=== PATIENT | female | born 1965 ===

== ENCOUNTER 2019-01-17 16:57 | Observation (INO) | payer MEDICAID, OTHER ==
[2019-01-17 16:59] VITALS: BMI 25.4
[2019-01-17] MEDS ORDERED: Sodium Chloride 0.9% 1,000 ML IV ONE ×2 (17:23→18:10)
--- NOTE | 2019-01-17 17:23 | C.PDOC ---
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 Patient denies having fever,chills, diarrhea or dysuria. <Annette Mar - Last Filed: 01/17/19 18:44> History Per: Patient History/Exam Limitations: no limitations Onset/Duration Of Symptoms: Hrs Current Symptoms Are (Timing): Still Present Severity: Moderate Location Of Pain/Discomfort: Diffuse Quality Of Discomfort: Cramping Associated Symptoms: Nausea, Vomiting. denies: Fever, Chills <Isabela,Annette A - Last Filed: 01/17/19 18:44> <Brittany Bolden - Last Filed: 01/17/19 21:00> Chief Complaint (Nursing): Abdominal Pain Past Medical History Reviewed: Historical Data, Nursing Documentation, Vital Signs Vital Signs: Last Vital Signs Temp 97.5 F L 01/17/19 17:08 Pulse 56 L 01/17/19 17:08 Resp 20 01/17/19 17:08 BP 141/94 H 01/17/19 17:08 Pulse Ox 100 01/17/19 17:08 - Medical History PMH: No Chronic Diseases Other Surgeries: Hx of surgeries Family History: States: No Known Family Hx - Social History Hx Alcohol Use: No Hx Substance Use: No <Annette Mar - Last Filed: 01/17/19 18:44> Vital Signs: Last Vital Signs Temp 97.7 F 01/17/19 20:25 Pulse 66 01/17/19 20:25 Resp 20 01/17/19 20:25 BP 125/75 01/17/19 20:25 Pulse Ox 100 01/17/19 20:25 <Brittany Bolden - Last Filed: 01/17/19 21:00> Review Of Systems Except As Marked, All Systems Reviewed And Found Negative. Constitutional: Negative for: Fever, Chills Gastrointestinal: Positive for: Nausea, Vomiting, Abdominal Pain. Negative for: Diarrhea Genitourinary: Negative for: Dysuria, Hematuria <IsabelaAnnette Akash - Last Filed: 01/17/19 18:44> Physical Exam - Physical Exam Appears: Non-toxic, No Acute Distress Skin: Normal Color, Warm, Dry Head: Atraumatic, Normacephalic Eye(s): bilateral: Normal Inspection Nose: Normal Oral Mucosa: Moist Neck: Supple Chest: Symmetrical Cardiovascular: Rhythm Regular Respiratory: Normal Breath Sounds, No Rales, No Rhonchi, No Wheezing Gastrointestinal/Abdominal: Soft, Tenderness (diffuse tenderness), No Guarding, No Rebound Back: No CVA Tenderness Neurological/Psych: Oriented x3, Normal Speech <Annette Mar - Last Filed: 01/17/19 18:44> ED Course And Treatment - Laboratory Results Result Diagrams: 01/17/19 17:37 01/17/19 17:37 Lab Interpretation: Abnormal Urine POC: Negative O2 Sat by Pulse Oximetry: 100 (RA) Pulse Ox Interpretation: Normal Progress Note: Treated with IVF NSS x 2 L and zofran IV <Annette Mar - Last Filed: 01/17/19 18:44> - Laboratory Results Result Diagrams: 01/17/19 17:37 01/17/19 17:37 Lab Results: Total Bilirubin 0.3 mg/dL (0.2-1.3) 01/17/19 17:37 AST 22 U/L (14-36) 01/17/19 17:37 ALT 22 U/L (9-52) 01/17/19 17:37 Alkaline Phosphatase 85 U/L (38-126) 01/17/19 17:37 Total Protein 7.6 g/dL (6.3-8.3) 01/17/19 17:37 Albumin 4.7 g/dL (3.5-5.0) 01/17/19 17:37 Globulin 2.9 gm/dL (2.2-3.9) 01/17/19 17:37 Albumin/Globulin Ratio 1.6 (1.0-2.1) 01/17/19 17:37 Lipase 40 U/L (23-300) 01/17/19 17:37 Urine Color Yellow (YELLOW) 01/17/19 17:45 Urine Clarity Hazy (Clear) 01/17/19 17:45 Urine pH 7.0 (5.0-8.0) 01/17/19 17:45 Ur Specific [place] 1.021 (1.003-1.030) 01/17/19 17:45 Urine Protein Negative mg/dL (NEGATIVE) 01/17/19 17:45 Urine Glucose (UA) 1+ mg/dL (Normal) 01/17/19 17:45 Urine Ketones 1+ mg/dL (NEGATIVE) H 01/17/19 17:45 Urine Blood 1+ (NEGATIVE) H 01/17/19 17:45 Urine Nitrate Negative (NEGATIVE) 01/17/19 17:45 Urine Bilirubin Negative (NEGATIVE) 01/17/19 17:45 Urine Urobilinogen Normal mg/dL (0.2-1.0) 01/17/19 17:45 Ur Leukocyte Esterase Neg Joe/uL (Negative) 01/17/19 17:45 Urine WBC (Auto) 2 /hpf (0-5) 01/17/19 17:45 Urine RBC (Auto) 8 /hpf (0-3) H 01/17/19 17:45 Ur Squamous Epith Cells 1 /hpf (0-5) 01/17/19 17:45 Amorphous Sediment Rare /ul (<OCC) H 01/17/19 17:45 Urine HCG, Qual Negative (NEGATIVE) 01/17/19 17:45 Urine HCG, Qual Negative (NEGATIVE) 01/17/19 17:45 - CT Scan/US US ABD/PEL Other Rad Studies (CT/US): Read By Radiologist, Radiology Report Reviewed CT/US Interpretation: Name: MARIZOL ZENG Exam Date: Jan 17, 2019 6:56:36 PM EDT. Modality Type: CT\SR. Description: CT - ABDOMEN AND PELVIS. Gender: F Laterality: Not applicable. 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 . EXAM: CT Abdomen and Pelvis without IV contrast. CLINICAL HISTORY: Stomach pain. TECHNIQUE: Axial computed tomography images of the abdomen and pelvis without intravenous contrast. CONTRAST: Without. COMPARISON: None provided. FINDINGS: LUNG BASES: The lung bases appear clear. No pleural effusions are seen. LIVER: Unremarkable. GALLBLADDER AND BILE DUCTS: The gallbladder appears within normal limits. No radioopaque gallstones are seen. No biliary ductal dilatation is evident. PANCREAS: Unremarkable. SPLEEN: Unremarkable. ADRENAL GLANDS: Unremarkable. KIDNEYS, URETERS, AND BLADDER: The kidneys appear within normal limits. There is no hydronephrosis or hydroureter. No urinary calculi are seen. The urinary bladder appeared normal in size and configuration. STOMACH AND BOWEL: A small hiatal hernia is noted. No evidence of bowel obstruction. No evidence suggesting enteritis or colitis. APPENDIX: The appendix is distended with fluid measuring up to 1.2 cm transversely. Subtle periappendiceal haziness is noted. These findings are compatible with acute appendicitis. PERITONEUM: No free fluid. No free air. LYMPH NODES: No lymphadenopathy is evident. REPRODUCTIVE: Bulky fibroid uterus is seen. Ovaries are grossly normal. VASCULATURE: No evidence of abdominal aortic aneurysm. BONES: No aggressive appearing osseous lesion. No acute osseous pathology evident. IMPRESSION: 1. Findings compatible with acute appendicitis. 2. Small hiatal hernia. 3. Fibroid uterus. . Electronically signed on Jan 17, 2019 8:43:00 PM EDT by: Thong Rodriguez M.D., MELVA Certified By ABR & CBCCT. Fellowship Trained MRI and CT Specialist <Brittany Bolden - Last Filed: 01/17/19 21:00> Medical Decision Making Medical Decision Making: Plan: --Labs --UA --CT-Abd & Pelv. --IV Fluids --Zofran IV --Toradol IV <Annette Mar - Last Filed: 01/17/19 18:44> Disposition - Disposition Disposition Time: 19:00 - POA Present On Arrival: None <Annette Mar - Last Filed: 01/17/19 18:44> - Disposition Disposition Time: 20:59 - POA Present On Arrival: None <Brittany Bolden - Last Filed: 01/17/19 21:00> - Disposition Disposition: HOSPITALIZED Condition: STABLE - Clinical Impression Clinical Impression: Acute appendicitis - PA / SHAPE HAND / Resident Statement MD/DO has reviewed & agrees with the documentation as recorded. - Scribe Statement The provider has reviewed the documentation as recorded by the Gelacioibe Thomas Gene Provider Attestation All medical record entries made by the Scribe were at my direction and personally dictated by me. I have reviewed the chart and agree that the record accurately reflects my personal performance of the history, physical exam, medical decision making, and the department course for this patient. I have also personally directed, reviewed, and agree with the discharge instructions and disposition. <Annette Mar - Last Filed: 01/17/19 18:44> Physician Patient Turnover Patient Signed Over To: Brittany Bolden Handoff Comments: pending CT <Annette aMr - Last Filed: 01/17/19 18:44> Addendum Addendum: 01/17/19 20:58 Patient endorsed by Isabela pending CT results. CT findings consistent with acute appendicitis. Case discussed with Dr Willoughby who agrees to admit. <Brittany Bolden - Last Filed: 01/17/19 21:00>
[2019-01-17] MEDS ORDERED: Sodium Chloride 0.9% 1,000 ML ONE ×2 (17:33→18:46)
[2019-01-17 17:40] LABS: BASO % 0.1 % (0.0-2.0); EOS % 0.1 % (0.0-4.0); HEMOGLOBIN 10.5 g/dL (11.0-16.0); LYMPH # 0.6 K/uL (1.0-4.3); LYMPH % 2.9 % (20.0-40.0); MEAN CELL VOLUME 72.2 fL (81.0-99.0); MEAN CORPUSCULAR HEMOGLOBIN 22.5 pg (27.0-31.0); MEAN CORPUSCULAR HGB CONC 31.1 g/dL (33.0-37.0); MEAN PLATELET VOLUME 7.7 fL (7.2-11.7); MONO # 0.4 K/uL (0.0-0.8); MONO % 2.2 % (0.0-10.0); NEUT # 19.3 K/uL (1.8-7.0); NEUT % 94.7 % (50.0-75.0); PLATELET COUNT 361 K/uL (130-400); RBC 4.66 Mil/uL (3.80-5.20); RED CELL DISTRIBUTION WIDTH 19.1 % (11.5-14.5); WHITE BLOOD COUNT 20.4 K/uL (4.8-10.8)
[2019-01-17 17:55] LABS: ALB/GLOB RATIO 1.6 (1.0-2.1); ALBUMIN 4.7 g/dL (3.5-5.0); ALT/SGPT 22 U/L (9-52); AST/SGOT 22 U/L (14-36); BLOOD UREA NITROGEN 22 mg/dL (7-17); CALCIUM 9.6 mg/dl (8.6-10.4); GFR NON-AFRICAN AMERICAN > 60; LIPASE 40 U/L (23-300)
[2019-01-17 17:59] LABS: SQUAMOUS EPITHIAL 1 /hpf (0-5); URINE AMORPHOUS SEDIMENT RARE /ul (<OCC); URINE BILIRUBIN NEGATIVE (NEGATIVE); URINE BLOOD 1+ (NEGATIVE); URINE CLARITY Hazy (Clear); URINE COLOR Yellow (YELLOW); URINE GLUCOSE (UA) 1+ mg/dL (Normal); URINE LEUKOCYTE ESTERASE NEG Leu/uL (Negative); URINE PROTEIN NEGATIVE (NEGATIVE); URINE UROBILINOGEN NORMAL mg/dL (0.2-1.0)
[2019-01-17 18:34] LABS: BANDS 9 % (0-2); LYMPHOCYTE 1 % (20-40); MONOCYTE 1 % (0-10); NEUTROPHIL 89 % (50-75); PLATELET ESTIMATE NORMAL (NORMAL); TOTAL CELLS COUNTED 100
[2019-01-17 18:35] LABS: MICROCYTOSIS SLIGHT; TEARDROP CELLS SLIGHT
[2019-01-17 18:36] LABS: HYPOCHROMIC SLIGHT; OVALOCYTES SLIGHT
[2019-01-17] MEDS ORDERED: Piperacillin/Tazobact 3.375 gm 100 ML IV STA (21:13)
[2019-01-17] MEDS ORDERED: Piperacillin/Tazobact 3.375 gm 100 ML IVPB ONE (21:41)
[2019-01-17] MEDS: Lactated Ringer's 1,000 ML IV SCH (21:47)
--- NOTE | 2019-01-17 21:48 | CP.PCM.HP ---
History of Present Illness - History of Present Illness History of Present Illness: General Surgery Dr. Willoughby 53 y/o F w/ no PMHx presents to the ED c/o abd pain. Pt states pain began earlier this afternoon. Pain described as constant, generalized abd pain, worse in RLQ. Pain improved since receiving meds in ED. Pt denies similar pain in the past. Pt admits to associated chills, nausea, and multiple episodes NBNB v omiting. Pt denies fever, CP, SOB, D/C, dysuria. In ED, pt found to be afebrile w/ elevated WBC. CTAP performed read as acute appendicitis, for which surgery was called. PMHx: denies Meds: reviewed in chart NKDA PSHx: x2 SHx: denies tobacco, EtOH, Drug use FHx: noncontributory Present on Admission - Present on Admission Any Indicators Present on Admission: No Review of Systems - Review of Systems All systems: reviewed and no additional remarkable complaints except (see HPI) Past Patient History - Past Social History Smoking Status: Never Smoked - PSYCHIATRIC Hx Substance Use: No - SURGICAL HISTORY Hx Surgeries: Yes Hx Section: Yes Meds Allergies/Adverse Reactions: Allergies Allergy/AdvReac Type Severity Reaction Status Date / Time No Known Allergies Allergy Verified 12/19/17 08:55 Physical Exam - Constitutional Appears: Non-toxic, No Acute Distress - Head Exam Head Exam: NORMAL INSPECTION - Eye Exam Eye Exam: Normal appearance - ENT Exam ENT Exam: Mucous Membranes Moist - Respiratory Exam Respiratory Exam: NORMAL BREATHING PATTERN. absent: Accessory Muscle Use, Respiratory Distress - Cardiovascular Exam Cardiovascular Exam: REGULAR RHYTHM. absent: Bradycardia, Tachycardia - GI/Abdominal Exam GI & Abdominal Exam: Soft, Tenderness (TTP RLQ). absent: Distended, Firm, Guarding, Rebound, Rigid - Extremities Exam Extremities exam: Positive for: normal inspection - Neurological Exam Neurological exam: Alert, Oriented x3 - Psychiatric Exam Psychiatric exam: Normal Affect, Normal Mood - Skin Skin Exam: Dry, Intact, Normal Color, Warm Results - Vital Signs Recent Vital Signs: Last Vital Signs Temp 97.7 F 01/17/19 20:25 Pulse 66 01/17/19 20:25 Resp 20 01/17/19 20:25 BP 125/75 01/17/19 20:25 Pulse Ox 100 01/17/19 20:25 - Labs Result Diagrams: 01/17/19 17:37 01/17/19 17:37 Labs: Laboratory Results - last 24 hr 01/17/19 01/17/19 01/17/19 17:37 17:37 17:45 WBC 20.4 H D RBC 4.66 Hgb 10.5 L Hct 33.7 L MCV 72.2 L D MCH 22.5 L MCHC 31.1 L RDW 19.1 H Plt Count 361 MPV 7.7 Neut % (Auto) 94.7 H Lymph % (Auto) 2.9 L [place] % (Auto) 2.2 Eos % (Auto) 0.1 Baso % (Auto) 0.1 Neut # (Auto) 19.3 H Lymph # (Auto) 0.6 L [place] # (Auto) 0.4 Eos # (Auto) 0.0 Baso # (Auto) 0.0 Neutrophils % (Manual) 89 H Band Neutrophils % 9 H Lymphocytes % (Manual) 1 L Monocytes % (Manual) 1 Platelet Estimate Normal Hypochromasia (manual) Slight Microcytosis (manual) Slight Tear Drop Cells Slight Ovalocytes Slight Sodium 138 Potassium 3.5 L Chloride 101 Carbon Dioxide 26 Anion Gap 15 BUN 22 H Creatinine 0.6 L Est GFR ( Amer) > 60 Est GFR (Non-Af Amer) > 60 Random Glucose 176 H D Calcium 9.6 Total Bilirubin 0.3 AST 22 ALT 22 Alkaline Phosphatase 85 Total Protein 7.6 Albumin 4.7 Globulin 2.9 Albumin/Globulin Ratio 1.6 Lipase 40 Urine Color Yellow Urine Clarity Hazy Urine pH 7.0 Ur Specific [place] 1.021 Urine Protein Negative Urine Glucose (UA) 1+ Urine Ketones 1+ H Urine Blood 1+ H Urine Nitrate Negative Urine Bilirubin Negative Urine Urobilinogen Normal Ur Leukocyte Esterase Neg Urine WBC (Auto) 2 Urine RBC (Auto) 8 H Ur Squamous Epith Cells 1 Amorphous Sediment Rare H Urine HCG, Qual 01/17/19 17:45 WBC RBC Hgb Hct MCV MCH MCHC RDW Plt Count MPV Neut % (Auto) Lymph % (Auto) [place] % (Auto) Eos % (Auto) Baso % (Auto) Neut # (Auto) Lymph # (Auto) [place] # (Auto) Eos # (Auto) Baso # (Auto) Neutrophils % (Manual) Band Neutrophils % Lymphocytes % (Manual) Monocytes % (Manual) Platelet Estimate Hypochromasia (manual) Microcytosis (manual) Tear Drop Cells Ovalocytes Sodium Potassium Chloride Carbon Dioxide Anion Gap BUN Creatinine Est GFR ( Amer) Est GFR (Non-Af Amer) Random Glucose Calcium Total Bilirubin AST ALT Alkaline Phosphatase Total Protein Albumin Globulin Albumin/Globulin Ratio Lipase Urine Color Urine Clarity Urine pH Ur Specific [place] Urine Protein Urine Glucose (UA) Urine Ketones Urine Blood Urine Nitrate Urine Bilirubin Urine Urobilinogen Ur Leukocyte Esterase Urine WBC (Auto) Urine RBC (Auto) Ur Squamous Epith Cells Amorphous Sediment Urine HCG, Qual Negative - Imaging and Cardiology CT scan - abdomen Status: Image reviewed by me Assessment & Plan - Assessment and Plan (Free Text) Assessment: 53 y/o F w/ acute appendicitis Plan: - NPO/IVF - IV Abx - pain management - anti-emetic - monitor vitals - Plan for OR @9am for lap appy - encourage OOB to chair/Amb Pt discussed w/ Dr. Case St DO PGY3
[2019-01-18] MEDS ORDERED: Pneumococcal 23-Valent Vaccine IM ONE (02:04)
[2019-01-18] MEDS: Piperacill/Tazo 3.375gm in Dex 3.375 GM/50 ML BAG IVPB SCH ×4 (02:15→21:13)
[2019-01-18] MEDS: Lactated Ringer's 1,000 ML IV SCH ×2 (07:30→18:10)
[2019-01-18 08:16] LABS: INR 1.3; PROTHROMBIN TIME 13.8 SECONDS (9.7-12.2)
[2019-01-18 08:26] LABS: BASO % 0.1 % (0.0-2.0); HEMOGLOBIN 9.7 g/dL (11.0-16.0); LYMPH # 0.8 K/uL (1.0-4.3); LYMPH % 4.5 % (20.0-40.0); MEAN CELL VOLUME 72.1 fL (81.0-99.0); MEAN CORPUSCULAR HEMOGLOBIN 22.9 pg (27.0-31.0); MEAN CORPUSCULAR HGB CONC 31.8 g/dL (33.0-37.0); MONO # 0.7 K/uL (0.0-0.8); NEUT # 16.6 K/uL (1.8-7.0); NEUT % 91.4 % (50.0-75.0); PLATELET COUNT 337 K/uL (130-400); RBC 4.25 Mil/uL (3.80-5.20); RED CELL DISTRIBUTION WIDTH 19.4 % (11.5-14.5); WHITE BLOOD COUNT 18.1 K/uL (4.8-10.8)
[2019-01-18 08:27] LABS: BLOOD UREA NITROGEN 14 mg/dL (7-17); CALCIUM 8.9 mg/dl (8.6-10.4); GFR NON-AFRICAN AMERICAN > 60
--- NOTE | 2019-01-18 08:31 | RAD ---
Date of service: 01/18/2019 HISTORY: pre-op COMPARISON: No prior. TECHNIQUE: 1 view obtained. FINDINGS: LUNGS: No active pulmonary disease. PLEURA: No significant pleural effusion identified, no pneumothorax apparent. CARDIOVASCULAR: No aortic atherosclerotic calcification present. Normal cardiac size. No pulmonary vascular congestion. OSSEOUS STRUCTURES: No significant abnormalities. Bilateral shoulder arthrosis. Mild-moderate thoracic spondylosis VISUALIZED UPPER ABDOMEN: Normal. OTHER FINDINGS: None. IMPRESSION: No active disease.
[2019-01-18] MEDS ORDERED: Midazolam 2 MG/2 ML VIAL ONE (09:03)
[2019-01-18] MEDS ORDERED: ePHEDrine 50 mg/ml Inj ONE (09:03)
[2019-01-18] MEDS ORDERED: Propofol 10 mg/ml Inj (20 ML) ONE (09:03)
[2019-01-18] MEDS ORDERED: Succinylcholine Chloride 20 mg/ml Syr (5 ml) IV ONE (09:06)
[2019-01-18] MEDS ORDERED: Rocuronium 10 mg/ml (5 ml) ONE (09:06)
--- NOTE | 2019-01-18 09:10 | CT ---
Date of service: 01/17/2019 PROCEDURE: CT Abdomen and Pelvis without intravenous contrast HISTORY: Abdominal pain COMPARISON: None. TECHNIQUE: CT scan of the abdomen and pelvis was performed without administration of intravenous contrast. Oral contrast was not administered. Coronal and sagittal reformatted images were obtained. Radiation dose: Total exam DLP = 542.21 mGy-cm. This CT exam was performed using one or more of the following dose reduction techniques: Automated exposure control, adjustment of the mA and/or kV according to patient size, and/or use of iterative reconstruction technique. FINDINGS: LOWER THORAX: The visualized lungs are clear. LIVER: Normal in size. No gross lesion or ductal dilatation. GALLBLADDER AND BILE DUCTS: Well distended. No calcified gallstones. No common bile duct dilatation. PANCREAS: Normal in size. No gross lesion or ductal dilatation. SPLEEN: Normal in size. ADRENALS: Normal in size. No discrete nodule. KIDNEYS AND URETERS: Both kidneys are normal in size. No hydronephrosis or nephrolithiasis. VASCULATURE: Normal in caliber. No aortic aneurysm. No aortic atherosclerotic calcification or mural plaque present. BOWEL: Evaluation of the bowel is limited in the absence of oral contrast. The small bowel loops are normal in caliber. The colon is normal in size. No bowel dilatation or wall thickening. No bowel obstruction. APPENDIX: There is a fluid-filled mildly dilated appendix with mild wall enhancement and surrounding inflammatory changes. PERITONEUM: No free fluid. No free air. LYMPH NODES: No enlarged lymph nodes. BLADDER: Well distended and normal in appearance. REPRODUCTIVE: Enlarged bulky presumable fibroid uterus. BONES: No acute fracture. Within normal limits for the patient's age. OTHER FINDINGS: There is a small sliding hiatal hernia. IMPRESSION: Uncomplicated acute appendicitis. Enlarged bulky fibroid uterus. Please correlate with pelvic ultrasound. A preliminary report was provided by [facility].
[2019-01-18 10:04] LABS: ANISOCYTOSIS MODERATE; BANDS 5 % (0-2); LYMPHOCYTE 1 % (20-40); MONOCYTE 5 % (0-10); NEUTROPHIL 89 % (50-75); PLATELET ESTIMATE NORMAL (NORMAL); TOTAL CELLS COUNTED 100
--- NOTE | 2019-01-18 10:23 | PCM.SURG1 ---
Surgeon's Initial Post Op Note - Surgeon's Notes Surgeon: MD Case Ceramic Painter: Amari, PGY3 Pre-Operative Diagnosis: Acute Appendicitis Operative Findings: Inflammed appendix, adhesions Post-Operative Diagnosis: Acute appendicitis Operation Performed: Laparoscopic Appendectomy Specimen/Specimens Removed: Appendix Estimated Blood Loss: EBL {In ML}: 10 Date of Surgery/Procedure: 01/18/19 Time of Surgery/Procedure: 09:00
[2019-01-18] MEDS ORDERED: HYDROmorphone 0.5 mg/0.5 ml ISec IVP PRN (10:38)
[2019-01-18] MEDS ORDERED: HYDROmorphone 0.5 mg/0.5 ml ISec ONE (10:38)
[2019-01-18] MEDS ORDERED: Lactated Ringer's 1,000 ML IV SCH (10:45)
--- NOTE | 2019-01-18 21:01 | OP ---
PROCEDURE DATE: 01/18/2019 PREOPERATIVE DIAGNOSIS: Acute appendicitis. POSTOPERATIVE DIAGNOSIS: Acute appendicitis. PROCEDURE: Laparoscopic appendectomy. SURGEON: Alicia Willoughby MD. ASSISTANTS: Ha Fitzpatrick DO, PGY-3; Annita Sepulveda, MS-3. TYPE OF ANESTHESIA: General. ANESTHESIA ADMINISTERED BY: Gabriel Menjivar, BSN/RN/CCRN. ESTIMATED BLOOD LOSS: 10 mL. DESCRIPTION OF PROCEDURE: Upon sedation and intubation, the patient was placed in a supine position. Abdomen was prepped and draped in the usual sterile fashion. Time-out was called. Infraumbilical incision was made by a 12 mm trocar. Abdomen was entered via Veress needle with entering pressures of 0 and insufflated to 15 mmHg. A 12 mm trocar was placed in the infraumbilical incision into the abdomen. Camera was used to visualize the intraabdominal space and evaluate for any damage of entry, which there was no injury on entry. Findings of inflamed appendix in the right lower quadrant and adhesions in the pelvis were noted. Laparoscopic scissors was used to perform lysis of adhesions in the pelvic space to allow for placement of further trocars. Two more trocars were placed, one 5 mm and another 12 mm in the left lower quadrant in the suprapubic region. With graspers and [place], appendix was dissected from its adhesions all the way down to the level of the cecum. Window was made at the base of the appendix between the mesentery and the appendix. A white load was used on staple to staple off the mesentery of the appendix. Small oozing of blood was seen coming from the mesenteric stump. Multiple clips were placed and hemostasis was achieved. White load was also used at the base of the appendix to separate the appendix from the cecum. Appendix was taken out via the supraumbilical incision in an Endocatch bag and sent as specimen. The abdomen was irrigated and suctioned until clear fluid was seen coming out of the abdomen. No further bleeding was noted. All trocars were removed. Abdomen was deflated. The infraumbilical incision and suprapubic incision were both closed at the fascial level with 0 Vicryl sutures with a [id number] stitch manner. All three incisions were closed with 4-0 Monocryl. Dressings were Steri-Strips and island dressing. The patient was extubated from anesthesia, tolerated the procedure well and was transferred to the PACU without any complications. Estimated blood loss was 10 mL. Ha Fitzpatrick DO Alicia Willoughby MD NINOSKA
[2019-01-19] MEDS: Lactated Ringer's 1,000 ML IV SCH (02:32)
[2019-01-19] MEDS: Piperacill/Tazo 3.375gm in Dex 3.375 GM/50 ML BAG IVPB SCH ×2 (02:46→11:16)
[2019-01-19 06:08] VITALS: RESP 18; O2SAT 97
[2019-01-19 07:58] VITALS: BP 96/63; PULSE 72; TEMP 98.4
[2019-01-19 08:14] LABS: INR 1.3; PROTHROMBIN TIME 13.8 SECONDS (9.7-12.2)
--- NOTE | 2019-01-19 08:45 | CP.PCM.DIS ---
Provider - Provider Date of Admission: 01/17/19 21:01 Attending physician: Alicia Willoughby MD Time Spent in preparation of Discharge (in minutes): 40 Hospital Course - Lab Results Lab Results: Most Recent Lab Values WBC 18.1 K/uL (4.8-10.8) H 01/18/19 07:55 RBC 4.25 Mil/uL (3.80-5.20) 01/18/19 07:55 Hgb 9.7 g/dL (11.0-16.0) L 01/18/19 07:55 Hct 30.7 % (34.0-47.0) L 01/18/19 07:55 MCV 72.1 fL (81.0-99.0) L 01/18/19 07:55 MCH 22.9 pg (27.0-31.0) L 01/18/19 07:55 MCHC 31.8 g/dL (33.0-37.0) L 01/18/19 07:55 RDW 19.4 % (11.5-14.5) H 01/18/19 07:55 Plt Count 337 K/uL (130-400) 01/18/19 07:55 MPV 8.0 fL (7.2-11.7) 01/18/19 07:55 Neut % (Auto) 91.4 % (50.0-75.0) H 01/18/19 07:55 Lymph % (Auto) 4.5 % (20.0-40.0) L 01/18/19 07:55 [place] % (Auto) 4.0 % (0.0-10.0) 01/18/19 07:55 Eos % (Auto) 0.0 % (0.0-4.0) 01/18/19 07:55 Baso % (Auto) 0.1 % (0.0-2.0) 01/18/19 07:55 Neut # (Auto) 16.6 K/uL (1.8-7.0) H 01/18/19 07:55 Lymph # (Auto) 0.8 K/uL (1.0-4.3) L 01/18/19 07:55 [place] # (Auto) 0.7 K/uL (0.0-0.8) 01/18/19 07:55 Eos # (Auto) 0.0 K/uL (0.0-0.7) 01/18/19 07:55 Baso # (Auto) 0.0 K/uL (0.0-0.2) 01/18/19 07:55 Neutrophils % (Manual) 89 % (50-75) H 01/18/19 07:55 Band Neutrophils % 5 % (0-2) H 01/18/19 07:55 Lymphocytes % (Manual) 1 % (20-40) L 01/18/19 07:55 Monocytes % (Manual) 5 % (0-10) 01/18/19 07:55 Platelet Estimate Normal (NORMAL) 01/18/19 07:55 Hypochromasia (manual) Slight 01/17/19 17:37 Anisocytosis (manual) Moderate 01/18/19 07:55 Microcytosis (manual) Slight 01/17/19 17:37 Tear Drop Cells Slight 01/17/19 17:37 Ovalocytes Slight 01/17/19 17:37 PT 13.8 SECONDS (9.7-12.2) H 01/19/19 07:59 INR 1.3 01/19/19 07:59 APTT 29 SECONDS (21-34) 01/19/19 07:59 Sodium 138 mmol/L (132-148) 01/18/19 07:55 Potassium 3.4 mmol/L (3.6-5.2) L 01/18/19 07:55 Chloride 107 mmol/L (98-107) 01/18/19 07:55 Carbon Dioxide 26 mmol/L (22-30) 01/18/19 07:55 Anion Gap 8 (10-20) L 01/18/19 07:55 BUN 14 mg/dL (7-17) 01/18/19 07:55 Creatinine 0.7 mg/dL (0.7-1.2) 01/18/19 07:55 Est GFR ( Amer) > 60 01/18/19 07:55 Est GFR (Non-Af Amer) > 60 01/18/19 07:55 Random Glucose 103 mg/dL (65-105) D 01/18/19 07:55 Calcium 8.9 mg/dl (8.6-10.4) 01/18/19 07:55 Phosphorus 3.2 mg/dL (2.5-4.5) 01/18/19 07:55 Magnesium 2.1 mg/dL (1.6-2.3) 01/18/19 07:55 Total Bilirubin 0.3 mg/dL (0.2-1.3) 01/17/19 17:37 AST 22 U/L (14-36) 01/17/19 17:37 ALT 22 U/L (9-52) 01/17/19 17:37 Alkaline Phosphatase 85 U/L (38-126) 01/17/19 17:37 Total Protein 7.6 g/dL (6.3-8.3) 01/17/19 17:37 Albumin 4.7 g/dL (3.5-5.0) 01/17/19 17:37 Globulin 2.9 gm/dL (2.2-3.9) 01/17/19 17:37 Albumin/Globulin Ratio 1.6 (1.0-2.1) 01/17/19 17:37 Lipase 40 U/L (23-300) 01/17/19 17:37 Urine Color Yellow (YELLOW) 01/17/19 17:45 Urine Clarity Hazy (Clear) 01/17/19 17:45 Urine pH 7.0 (5.0-8.0) 01/17/19 17:45 Ur Specific [place] 1.021 (1.003-1.030) 01/17/19 17:45 Urine Protein Negative mg/dL (NEGATIVE) 01/17/19 17:45 Urine Glucose (UA) 1+ mg/dL (Normal) 01/17/19 17:45 Urine Ketones 1+ mg/dL (NEGATIVE) H 01/17/19 17:45 Urine Blood 1+ (NEGATIVE) H 01/17/19 17:45 Urine Nitrate Negative (NEGATIVE) 01/17/19 17:45 Urine Bilirubin Negative (NEGATIVE) 01/17/19 17:45 Urine Urobilinogen Normal mg/dL (0.2-1.0) 01/17/19 17:45 Ur Leukocyte Esterase Neg Joe/uL (Negative) 01/17/19 17:45 Urine WBC (Auto) 2 /hpf (0-5) 01/17/19 17:45 Urine RBC (Auto) 8 /hpf (0-3) H 01/17/19 17:45 Ur Squamous Epith Cells 1 /hpf (0-5) 01/17/19 17:45 Amorphous Sediment Rare /ul (<OCC) H 01/17/19 17:45 Urine HCG, Qual Negative (NEGATIVE) 01/17/19 17:45 - Hospital Course Hospital Course: On admission: 53 year old female w/ no PMHx presents to the ED complaining of abdominal pain. She states pain began earlier this afternoon. Pain described as constant, generalized abd pain, worse in RLQ. Pain improved since receiving meds in ED. Pt denies similar pain in the past. She admits to associated chills, nausea, and multiple episodes NBNB vomiting. Pt denies fever, CP, SOB, D/C, dysuria. In ED, patient found to be afebrile with elevated WBC. CTAP performed read as acute appendicitis, for which surgery was called. Hospital course: Patient was admitted for acute appendicitis consistent with patient's history and imaging. She underwent laparoscopic appendectomy by Dr. Willoughby without complications. She was treated with IV fluids, Zosyn, Zofran, Morphine and Tylenol during her hospital stay. On discharge, patient's abdomen is soft, nontender without complaints of nausea or vomiting. She tolerated diet without any issues. Discharge instructions: 1. Please follow up with Dr. Willoughby in 1 week. Call office to make an appointment. 2. No heavy lifting over 10 pounds for next 4 to 6 weeks 3. You may taken Tylenol or Motrin for pain. 4. You may shower, but no baths, hot tubs. 5. You may take outer dressings off tomorrow. Small steri-strips undermeath can stay on until they fall off. 6. If you experience worsening of pain, please return to the Emergency Department at [facility]. Discharge Exam - Head Exam Head Exam: NORMAL INSPECTION - Eye Exam Eye Exam: EOMI, PERRL - ENT Exam ENT Exam: Mucous Membranes Moist - Neck Exam Neck exam: Full Rom - Respiratory Exam Respiratory Exam: NORMAL BREATHING PATTERN - Cardiovascular Exam Cardiovascular Exam: REGULAR RHYTHM, +S1, +S2 - GI/Abdominal Exam GI & Abdominal Exam: Normal Bowel Sounds, Soft Additional comments: Dressings clean, dry, intact - Extremities Exam Extremities exam: pedal pulses present - Neurological Exam Neurological exam: Alert, Oriented x3 Discharge Plan - Follow Up Plan Condition: IMPROVED Disposition: HOME/ ROUTINE Additional Instructions: 1. Please follow up with Dr. Willoughby in 1 week. Call office to make an appointment. 2. No heavy lifting over 10 pounds for next 4 to 6 weeks 3. You may taken Tylenol or Motrin for pain. 4. You may shower, but no baths, hot tubs. 5. You may take outer dressings off tomorrow. Small steri-strips undermeath can stay on until they fall off. 6. If you experience worsening of pain, please return to the Emergency Department at [facility]. Referrals: Alicia Willoughby MD [Staff Provider] -
--- NOTE | 2019-01-19 11:12 | CARD ---
APPROVED REPORT Date of service: 01/18/2019 EKG Measurement Heart [id number] <Conclusion> Normal sinus rhythm Nonspecific ST abnormality Prolonged QT Abnormal ECG
[2019-01-19] MEDS ORDERED: Pneumococcal 23-Valent Vaccine IM ONE (12:09)
[2019-01-19] MEDS ORDERED: Influenza Vaccine 60 mcg/0.5 mL SYR (4YR UP) IM ONE (12:09)
[2019-01-20] MEDS ORDERED: Pneumococcal 23-Valent Vaccine IM ONE (10:00)
[2019-01-20] MEDS ORDERED: Influenza Vaccine 60 mcg/0.5 mL SYR (4YR UP) IM ONE (10:00)
== END 2019-01-19 15:19 | disposition home or self-care (01) ==
LOC: C.ER 16:57 → C.9E 21:01 → C.6T 23:15
PROVIDERS: ADMIT Specialist; ATTEND Specialist
DX: K35.80 Unspecified acute appendicitis (principal)
CPT/HCPCS: 36415; 44970; 71045; 74176; 80048; 80053; 81001; 81025; 83690; 83735; 84100; 84703; 85025; 85610; 85730; 88304; 90674; 90732; 93005; 96361; 96365; 96366; 96375; 96376; 99284; G0008; G0009; G0378; J1170; J1885; J2250; J2270; J2405; J2543; J2704; J3010; J3480; J7030; J7120